=== PATIENT | male | born 1935 | race Caucasian/White ===

== ENCOUNTER 2016-05-07 16:44 | Outpatient (CLI) | payer MEDICARE, OTHER ==
[2016-05-07 17:17] LABS: Bilirubin Negative (Negative); Blood, Urine Large (Negative); Glucose, Urine (Dipstick) Negative (Negative); Ketone, Urine Trace mg/dL (Negative); Nitrite Negative (Negative); Protein, Urine (Dipstick) > or equal to 300 mg/dL (Neg-Trace); Urobilinogen 0.2 mg/dL (0.2-1.0)
[2016-05-07 17:36] LABS: Bacteria/HPF 4+ HPF (None Seen); Squamous Epithelial 0-3 HPF (0-3); WBC/HPF 21-50 HPF (0-3)
== END 2016-05-07 16:45 | disposition home or self-care (01) ==
LOC: NAVSJIPCSP 16:44
PROVIDERS: ATTEND Family Medicine
DX: N39.0 Urinary tract infection, site not specified (principal)
CPT/HCPCS: 81003; 81015; 87086

== ENCOUNTER 2016-08-12 11:52 | Outpatient (CLI) | payer MEDICARE, OTHER ==
[2016-08-12 13:39] LABS: Blood, Urine Large (Negative); Clarity Cloudy (Clear); Glucose, Urine (Dipstick) Negative (Negative); Leukocyte Large (Negative); Nitrite Positive (Negative); Protein, Urine (Dipstick) > or equal to 300 mg/dL (Neg-Trace); Specific Gravity, Urine 1.025 (1.005-1.030); pH, Urine 6.5 (5.0-9.0)
[2016-08-12 14:00] LABS: Bilirubin Negative (Negative); Icto Negative (Negative)
[2016-08-12 15:54] LABS: Bacteria/HPF 3+ HPF (None Seen); RBC/HPF 21-50 HPF (0-3); Squamous Epithelial 0-3 HPF (0-3)
== END 2016-08-12 11:53 | disposition home or self-care (01) ==
LOC: NAVSJIPCSP 11:52
PROVIDERS: ATTEND Family Medicine
DX: N39.0 Urinary tract infection, site not specified (principal)
CPT/HCPCS: 81003; 81015

== ENCOUNTER 2016-10-30 11:03 | Outpatient (CLI) | payer MEDICARE, OTHER ==
[2016-10-30 11:59] LABS: #Basophils 0.1 thou/uL (0.0-0.2); #Eosinphils 0.4 thou/uL (0.0-0.7); #Lymphocytes 1.3 thou/uL (1.20-3.40); #Monocytes 0.8 thou/uL (0.11-0.59); #Neutrophils 4.3 thou/uL (1.40-6.50); %Basophils 0.8 % (0.0-1.0); %Eosinophils 5.4 % (0.0-10.0); %Lymphocytes 19.8 % (21.0-51.0); %Monocytes 11.2 % (0.0-10.0); %Neutrophils 62.7 % (42.0-75.0); Hemoglobin 13.2 g/dL (14.0-18.0); Mean Corpuscular HGB CONC 31.3 g/dL (32.0-36.0); Mean Corpuscular Hemoglobin 26.8 pg (27.0-31.0); Mean Corpuscular Volume 85.7 fl (80.0-94.0); Mean Platelet Volume 7.8 fL (7.4-10.4); Platelet Count 236 thou/uL (130-400); RBC Distribution Width 15.9 % (11.5-14.5); Red Blood Cell (RBC) Count 4.93 mill/uL (4.70-6.10); White Blood Cell (WBC) Count 6.8 thou/uL (4.8-10.8)
[2016-10-30 12:13] LABS: Hemoglobin A1c 5.7 % (4.0-6.0)
[2016-10-30 12:15] LABS: ALT (SGPT) 31 U/L (8-55); AST (SGOT) 28 U/L (5-34); Albumin 3.9 g/dL (3.4-4.8); Alkaline Phosphatase 53 U/L (40-150); Anion Gap 15 mmol/L (10-20); BUN (Urea Nitrogen) 18 mg/dL (8.4-25.7); Bilirubin, Direct 0.2 mg/dL (0.1-0.3); Bilirubin, Total 0.5 mg/dL (0.2-1.2); Calc. Creatinine Clearance 0 mL/min (70-130); Calcium 9.3 mg/dL (7.8-10.44); Carbon Dioxide 22 mmol/L (23-31); Cardiac Risk 3.9 (Less than 4.5); Chloride 109 mmol/L (98-107); Cholesterol 162 mg/dl (< 200 Desired); Estimated GFR-MDRD 88; Glucose 89 mg/dL (83-110); HDL Cholesterol 42 mg/dL (>60 Neg Risk); LDL Cholesterol, Calculated 105 mg/dL; Potassium 3.5 mmol/L (3.5-5.1); Protein, Total 7.2 g/dL (5.8-8.1); Sodium 142 mmol/L (136-145); Triglycerides 73 mg/dL (Less than 150)
[2016-10-30 21:26] LABS: Bilirubin Negative (Negative); Blood, Urine Trace (Negative); Clarity Clear (Clear); Glucose, Urine (Dipstick) Negative (Negative); Leukocyte Moderate (Negative); Nitrite Negative (Negative); Protein, Urine (Dipstick) 100 mg/dL (Neg-Trace); Urobilinogen 0.2 mg/dL (0.2-1.0); pH, Urine 6.5 (5.0-9.0)
[2016-10-30 21:45] LABS: Squamous Epithelial 0-3 HPF (0-3)
[2016-10-30 21:46] LABS: Bacteria/HPF 3+ HPF (None Seen)
== END 2016-10-30 11:04 | disposition home or self-care (01) ==
LOC: NAV LAB 11:03
PROVIDERS: ATTEND Family Medicine
DX: I10 Essential (primary) hypertension (principal)
CPT/HCPCS: 36415; 80048; 80061; 80076; 81003; 81015; 83036; 84443; 85025

== ENCOUNTER 2017-01-28 11:17 | Outpatient (CLI) | payer MEDICARE, OTHER ==
[2017-01-28 11:42] LABS: Bilirubin Negative (Negative); Blood, Urine Moderate (Negative); Clarity Cloudy (Clear); Glucose, Urine (Dipstick) Negative (Negative); Leukocyte Large (Negative); Nitrite Positive (Negative); Protein, Urine (Dipstick) 100 mg/dL (Neg-Trace); Specific Gravity, Urine 1.025 (1.005-1.030); Urobilinogen 0.2 mg/dL (0.2-1.0)
[2017-01-28 11:46] LABS: Bacteria/HPF 3+ HPF (None Seen); Other Microscopic Description NO; Squamous Epithelial 0-3 HPF (0-3)
== END 2017-01-28 11:18 | disposition home or self-care (01) ==
LOC: NAV LAB 11:17
PROVIDERS: ATTEND Family Medicine
DX: N39.0 Urinary tract infection, site not specified (principal)
CPT/HCPCS: 81003; 81015; 87077; 87086; 87186

== ENCOUNTER 2017-08-10 09:50 | Emergency (ER) | payer MEDICARE, OTHER ==
[2017-08-10 10:28] LABS: Bacteria/HPF 2+ HPF (None Seen); Bilirubin Negative (Negative); Blood, Urine Moderate (Negative); Clarity Clear (Clear); Glucose, Urine (Dipstick) Negative (Negative); Leukocyte Large (Negative); Nitrite Negative (Negative); Protein, Urine (Dipstick) 100 mg/dL (Neg-Trace); RBC/HPF 0-3 HPF (0-3); Specific Gravity, Urine 1.015 (1.005-1.030); Squamous Epithelial 0-3 HPF (0-3)
[2017-08-10] MEDS ORDERED: Sulfameth/Trimethoprim DS 800-160mg TAB ONE ×2 (10:45)
== END 2017-08-10 11:25 | disposition home or self-care (01) ==
LOC: NAV ERS 09:50
DX: N39.0 Urinary tract infection, site not specified (principal); N40.0 Benign prostatic hyperplasia without lower urinary tract symptoms; Z87.891 Personal history of nicotine dependence; I10 Essential (primary) hypertension
CPT/HCPCS: 81003; 81015; 87077; 87086; 87186; 99283

== ENCOUNTER 2017-10-22 11:05 | Outpatient (CLI) | payer MEDICARE, OTHER ==
--- NOTE | 2017-10-22 12:21 | RAD ---
THREE VIEWS LUMBAR SPINE: History: Back pain. FINDINGS: AP, lateral, and coned down views of the lumbar spine obtained. Images demonstrate an endovascular stent graft in place. 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 There is calcification and ectasia of the abdominal aorta. There is severe degenerative change at multiple intervertebral disc levels involving L1-2, L2-3, L3-4 , L4-5 and L5-S1 levels. IMPRESSION: Severe lumbar spine changes of spondylosis and vacuum disc changes. POS: DAVID
== END 2017-10-22 11:06 | disposition home or self-care (01) ==
LOC: NAV RAD 11:05
PROVIDERS: ATTEND Family Medicine
DX: M54.5 Low back pain (principal); M47.896 Other spondylosis, lumbar region
CPT/HCPCS: 72100

== ENCOUNTER 2022-12-02 19:25 | Emergency (ER) | payer MEDICARE, OTHER | END 2022-12-02 21:00 | disposition home or self-care (01) | LOC: NAV ERS 19:25 | DX: K94.23 Gastrostomy malfunction (principal); I10 Essential (primary) hypertension; I73.9 Peripheral vascular disease, unspecified; Z87.891 Personal history of nicotine dependence | CPT/HCPCS: 74018 ==